=== PATIENT | female | born 1945 | race African-American/Black ===

== ENCOUNTER 2019-04-26 18:07 | Inpatient (IN) | payer MEDICARE ==
[2019-04-27 01:57] VITALS: BP 134/63
[2019-04-27] MEDS ORDERED: Magnesium Hydroxide (MOM) 30 mL UDC PO PRN (04:15)
[2019-04-27] MEDS: INSULIN LISPRO SLIDING SCALE 100 UNITS/ML UNIT SUBQ SCH ×4 (07:43→21:01)
[2019-04-27] MEDS: Multivitamin Tab PO SCH (09:43)
--- NOTE | 2019-04-27 17:51 | History and Physical ---
History of Present Illness - HPI Chief Complaint: Suicidal Ideation HPI: Patient has history of psychosis, that was send from hospital to continue treatment due to Suicidal ideas. 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 GI: Report: GERD Psych: Report: Anxiety, Depression, Psychosis Musculoskeletal: Report: Muscle Atrophy, Weakness Rheumatologic: Report: No pertinent Hx Infectious Disease: Report: No Pertinent Hx Renal/: Report: No Pertinent Hx Endocrine: Report: Diabetes Dermatology: Report: No Pertinent Hx - Past Surgical History Past Surgical History: No pertinent Hx Family Medical History - Family Member Mother History Unknown: Yes Father History Unknown: Yes Social History Smoke: No Alcohol: None Drugs: None Lives: Retirement Domestic Violence: Negative - Medications Home Medications: Home Medication Medication Instructions Recorded Type Acetaminophen [Acetaminophen ER] 650 mg PO Q6HR PRN 04/27/19 History Amlodipine Besylate 2.5 mg PO DAILY 04/27/19 History Atorvastatin Calcium [Lipitor] 40 mg PO HS 04/27/19 History Bisacodyl [Dulcolax 10 Mg Supp] 10 mg RC Q24HR PRN 04/27/19 History Cholecalciferol (Vit D3) [Vitamin 1,000 unit PO DAILY 04/27/19 History D3] Cyanocobalamin [Vitamin B12] 500 mcg PO DAILY 04/27/19 History Donepezil HCl [Aricept] 10 mg PO HS 04/27/19 History Fleet Enema 135 ml RC DAILY PRN 04/27/19 History Furosemide [Lasix] 20 mg PO DAILY 04/27/19 History Hydrocodone/APAP 5mg/325mg [Independence 1 tab PO Q6H PRN 04/27/19 History 5mg/325mg] Insulin Human Regular [humuLIN R] See Protocol SQ ACHS 04/27/19 History Lactulose 30 ml PO BID PRN 04/27/19 History Ondansetron HCl [Zofran*] 4 mg PO Q6H PRN 04/27/19 History Pantoprazole Sodium [Protonix] 40 mg PO DAILY 04/27/19 History Ranolazine [Ranolazine ER] 500 mg PO BID 04/27/19 History Rivaroxaban [Xarelto] 20 mg PO DAILY 04/27/19 History Sertraline [Zoloft] 25 mg PO DAILY 04/27/19 History Sucralfate [Carafate] 10 ml PO ACHS 04/27/19 History Trazodone HCl 150 mg PO HS 04/27/19 History clonazePAM [klonoPIN] 0.5 mg PO DAILY 04/27/19 History metFORMIN [Glucophage] 500 mg PO BID 04/27/19 History - Allergies Allergies/Adverse Reactions: Allergies Allergy/AdvReac Type Severity Reaction Status Date / Time ampicillin Allergy Verified 04/27/19 02:05 Penicillins Allergy Verified 04/27/19 02:05 procaine Allergy Verified 04/27/19 02:05 Review of Systems - Review of Systems Constitutional: Report: Other (confused, not oriented) Eyes: Report: No Significant ENT: Report: No Significant Respiratory: Report: No Significant Cardiovascular: Report: No Significant Genitourinary: Report: No Significant Musculoskeletal: Report: No Significant Skin: Report: No Significant Neurological: Report: Weakness Physical Exam - Physical Exam HEENT: Report: Ears Nose Throat within normal limits Neck: Report: Within normal limits Cardiovascular Systems: Report: Regular, Rate and Rhythm Respiratory: Report: Breath Sounds are within normal limits Abdomen: Report: Non-tender to palpation Back: Report: Inspection of back is within normal limits. Extremities: Report: Non-tender to palpation., Other (weakness of left side of body) Skin: Report: Color of skin is within normal limits Neuro/Psych: Report: Disoriented to name time or place, Facial droop noted - Assessment Assessment: Patient is awake, confused in no acute distress. Dx: Suicidal ideation, Psychosis, HTN, GERD, Urinary incontinency, S/P PE, S/P CVA, General weakness, Non ambulatory. - Plan Plan: Patient is follow by Psychiatry, Will continue with SNF meds. Will continue to monitor.
--- NOTE | 2019-04-28 03:01 | Psychiatric Evaluation ---
DATE OF SERVICE: 04/27/2019 IDENTIFYING DATA: The patient is a 74-year-old woman, [facility]. The patient is admitted here on a voluntary basis in view of her acute agitation and threats to hurt herself. CHIEF COMPLAINT: "I am upset, I'm feeling depressed for being in here." HISTORY OF PRESENT ILLNESS: This is the first psychiatric hospitalization to [facility] for this patient who is reported to multiple medical problems and is reported to have been getting easily agitated. As per the information obtained, the patient has been reported to have been getting depressed and has been threatening to hurt herself in the past, but at this time, the patient is denying any of that. The patient is also reported to have been getting easily agitated. The patient is stating that she has been able to fall asleep with the medications that she has been taking and the patient is still reporting that she does not understand why she needs to be in here. Sleep is noted to be poor. Appetite is noted to be fair. The patient has a difficult time to articulate; but however the patient is able to verbalize her concerns. PAST PSYCHIATRIC HISTORY: Details are not known. MEDICAL HISTORY AND PHYSICAL EXAMINATION: Requested by Dr. Fox. SUBSTANCE ABUSE HISTORY: None. PHYSICAL OR SEXUAL ABUSE HISTORY: None. LEGAL PROBLEMS: None at this time. STRENGTH AND ASSETS: The patient is motivated. MENTAL STATUS EXAMINATION: The patient is a 74-year-old woman looking her stated age, superficially cooperative. The patient has some articulation problems. The patient is isolative and withdrawn at this time. The patient has paranoia, but denies any command hallucinations. The patient is alert and awake, but the patient has short-term as well as long-term memory deficits. The patient is not able to care for herself. The patient is bedridden for most of the time. The patient feels very weak and reports that she is tired because she did not sleep well last night. DIAGNOSES: AXIS I: Major depressive disorder, recurrent and moderate. IB: Dementia and behavioral change, secondary trait. AXIS II: None. AXIS III: As per Dr. Fox. IMMEDIATE TREATMENT PLAN: The patient is going to be observed on inpatient unit, provided with supportive psychotherapy. The patient is going to be closely monitored. I encouraged to verbalize the concerns rather than to act out. The patient is currently on clonazepam that is going to be continued as 0.5 mg daily and the patient is also on sertraline that is going to be continued. The patient is complaining of insomnia and the patient is going to be continued with 50 mg of the trazodone and Ambien is going to be given on a p.r.n. basis. ESTIMATED LENGTH OF STAY: 5-7 days. DISCHARGE CRITERIA: When she no longer is a threat to self or others and be able to cope up with the stress. JOB# [id number]
[2019-04-28] MEDS: INSULIN LISPRO SLIDING SCALE 100 UNITS/ML UNIT SUBQ SCH ×4 (06:42→20:54)
[2019-04-28] MEDS: Multivitamin Tab PO SCH (09:21)
--- NOTE | 2019-04-29 01:38 | Progress Notes ---
DATE: 04/28/2019 PSYCHIATRIC PROGRESS NOTE SUBJECTIVE: Staff was spoken to. The patient is interviewed. The patient is getting easily frustrated. The patient has been having difficult time to articulate. The patient is lying down in the bed and needs some help to be getting out of the bed. The patient has no coping skills at this time. The patient is still insisting on ending her life because she is frustrated with her multiple medical problems. ASSESSMENT: The patient is still depressed. PLAN: To continue the patient with the supportive therapy and followup. JOB# [id number]
[2019-04-29] MEDS: INSULIN LISPRO SLIDING SCALE 100 UNITS/ML UNIT SUBQ SCH ×4 (06:39→20:48)
[2019-04-29] MEDS: Multivitamin Tab PO SCH (09:19)
--- NOTE | 2019-04-29 23:18 | Progress Notes ---
DATE: 04/29/2019 PSYCHIATRIC PROGRESS NOTE SUBJECTIVE: Staff was spoken to. The patient is interviewed. Mood is noted to be irritable. Affect is constricted. The patient is reported to have been requesting for more and more of the pain medication. The patient has no insight into her illness. Coping skills are noted to be extremely poor. The patient has been isolative and withdrawn. Speech has been impeded. The patient has been finding it difficult to open up and then express his concerns. The patient is lying down in the bed most of the time. ASSESSMENT: The patient is still depressed, and voicing suicidal ideation. PLAN: To continue the patient with the supportive therapy, encouraged the patient to verbalize the concerns rather than to act out. JOB# [id number]
[2019-04-30] MEDS: INSULIN LISPRO SLIDING SCALE 100 UNITS/ML UNIT SUBQ SCH ×4 (06:38→20:49)
[2019-04-30] MEDS: Multivitamin Tab PO SCH (09:07)
--- NOTE | 2019-04-30 09:16 | General Progress Note ---
Subjective - Review of Systems Service Date: 04/28/19 Subjective: Patient is awake, confused Objective - Results Recent Labs: Laboratory Last Values POC Glucose 98 MG/DL (70 - 105) 04/30/19 05:37 - Physical Exam Vitals and I&O: Vital Signs Temp 97.6 F 04/30/19 06:48 Pulse 62 04/30/19 06:48 Resp 18 04/30/19 07:31 BP 125/69 04/30/19 06:48 Pulse Ox 99 04/30/19 06:48 Intake & Output 04/29/19 04/30/19 04/30/19 18:59 06:59 18:59 Intake Total 1200 240 Balance 1200 240 Intake: Oral 1200 240 Other: # Voids 2 # Bowel Movements 1 0 Active Medications: Current Medications Acetaminophen (Tylenol) 650 mg PO Q6H PRN PRN Reason: Pain (Mild 1-3) Stop: 06/27/19 05:17 Last Admin: 04/29/19 17:50 Dose: 650 mg Acetaminophen (Tylenol) 650 mg PO Q6H PRN PRN Reason: Temperature above 101 Stop: 06/27/19 18:08 Clonazepam (Klonopin) 0.5 mg PO DAILY JIMI; Protocol Stop: 06/26/19 08:59 Last Admin: 04/30/19 09:07 Dose: 0.5 mg Insulin Human Lispro (Humalog Insulin Sliding Scale) 0 units SUBQ ACHS JIMI; Protocol Stop: 06/26/19 07:29 Last Admin: 04/30/19 06:38 Dose: Not Given Lorazepam (Ativan) 0.5 mg PO Q4HR PRN; Protocol PRN Reason: Anxiety/Agitation Stop: 05/27/19 04:14 Last Admin: 04/28/19 04:05 Dose: 0.5 mg Magnesium Hydroxide (Milk Of Magnesia) 30 ml PO HS PRN PRN Reason: Constipation Multivitamins/Vitamin C (Theragran) 1 tab PO DAILY JIMI Stop: 06/26/19 08:59 Last Admin: 04/30/19 09:07 Dose: 1 tab Sertraline HCl (Zoloft) 25 mg PO DAILY JIMI; Protocol Stop: 06/26/19 08:59 Last Admin: 04/30/19 09:07 Dose: 25 mg Trazodone HCl (Desyrel) 50 mg PO HS JIMI Stop: 06/26/19 20:59 Last Admin: 04/29/19 21:32 Dose: 50 mg Zolpidem Tartrate (Ambien) 5 mg PO HS PRN PRN Reason: Insomnia Stop: 06/26/19 04:14 General: Alert, Other (Confused) HEENT: Atraumatic Neck: Supple Cardiovascular: Regular rate Lungs: Clear to auscultation Abdomen: Bowel sounds, Soft Extremities: Other (No edema) Neurological: Other (Patient non ambulatory) Skin: Other (Warm and dry) Psych/Mental Status: Other (Patient is confused, calm) Assessment/Plan - Assessment Assessment: Patient is awake, confused in no acute distress. Dx: Suicidal ideation, Psychosis, HTN, GERD, Urinary incontinency, S/P PE, S/P CVA, General weakness, Non ambulatory. - Plan Plan: Patient is follow by Psychiatry, Will continue with SNF meds. Will continue to monitor.
--- NOTE | 2019-05-01 06:33 | Progress Notes ---
DATE: 04/30/2019 PSYCHIATRIC PROGRESS NOTE SUBJECTIVE: Staff was spoken to. The patient is interviewed. Mood is noted to be irritable. Affect is constricted. The patient's insight and judgment at this time are noted to be still impaired. Impulse control is noted to be limited. The patient has been screaming and yelling and wants more and more pain medications. The patient has no insight into her illness. ASSESSMENT: The patient is still impulsive and depressed. PLAN: To continue the patient with the supportive therapy. I encouraged the patient to verbalize the concerns rather than to act out. JOB# [id number]
[2019-05-01] MEDS: INSULIN LISPRO SLIDING SCALE 100 UNITS/ML UNIT SUBQ SCH ×4 (06:40→21:47)
[2019-05-01] MEDS: Multivitamin Tab PO SCH (08:38)
[2019-05-02] MEDS: INSULIN LISPRO SLIDING SCALE 100 UNITS/ML UNIT SUBQ SCH ×4 (06:41→21:13)
[2019-05-02] MEDS: Multivitamin Tab PO SCH (08:30)
[2019-05-03] MEDS: INSULIN LISPRO SLIDING SCALE 100 UNITS/ML UNIT SUBQ SCH ×4 (06:31→20:55)
--- NOTE | 2019-05-03 08:04 | Progress Notes ---
DATE: 05/02/2019 SUBJECTIVE: Staff was spoken to. The patient is interviewed. Mood is noted to be irritable. Affect is constricted. Insight and judgment at this time are noted to be still impaired. Impulse control is noted to be limited. Coping skills are noted to be limited. The patient is still depressed. The patient is voicing vague suicidal ideation. No clear plans are voiced. The patient is currently on low dose of Zoloft. Plan to increase the Zoloft to 50 mg and follow her up. ASSESSMENT: The patient is still depressed. PLAN: To continue the patient with the supportive therapy and followup. JOB# [id number]
--- NOTE | 2019-05-03 08:04 | Progress Notes ---
DATE: 05/01/2019 PSYCHIATRIC PROGRESS NOTE SUBJECTIVE: Staff was spoken to. The patient is interviewed. Mood is noted to be irritable. Affect is constricted. Coping skills are noted to be still poor. Insight and judgment are also noted to be limited. No side effects to the medications are noted. The patient is being depressed and has been still voicing suicidal ideation. No homicidal ideation is noted. The patient's coping skills at this time are noted to be extremely poor. The patient, however, has been asking for more and more of the pain medication. ASSESSMENT: The patient is still depressed. PLAN: To continue the patient with the supportive therapy. I encouraged the patient to verbalize the concerns rather than to act out. [facility]# [id number]
[2019-05-03] MEDS: Multivitamin Tab PO SCH (08:29)
--- NOTE | 2019-05-03 23:25 | Progress Notes ---
DATE: 05/03/2019 PSYCHIATRIC PROGRESS NOTE SUBJECTIVE: Staff was spoken to. The patient is interviewed. Mood is noted to be irritable. Affect is constricted. The patient is stating that she has been in here for too long and needs to go back to a placement. Coping skills at this time are noted to be still poor. The patient has been denying any suicidal ideation and impulsivity is a concern. No side effects to the medications are noted. Sleep is noted to be improving. Appetite is noted to be fair at this time. ASSESSMENT: The patient is still depressed. PLAN: To continue the patient with the current medications and followup. [facility]# [id number]
[2019-05-04] MEDS: INSULIN LISPRO SLIDING SCALE 100 UNITS/ML UNIT SUBQ SCH ×4 (06:36→20:36)
[2019-05-04] MEDS: Multivitamin Tab PO SCH (08:13)
--- NOTE | 2019-05-05 00:10 | Progress Notes ---
DATE: 05/04/2019 PSYCHIATRIC PROGRESS NOTE SUBJECTIVE: Staff was spoken to. The patient is interviewed. Mood is noted to be irritable. Affect is constricted. The patient is stating that she has been having difficult time to attend any groups and she cannot get out of the bed. The patient is able to articulate some of her concerns. The patient, however, has been getting easily frustrated. Family wants her to be placed in a different location and the account development manager has been trying to look for some place and so far nothing is available. ASSESSMENT: The patient is still depressed. PLAN: To continue the patient with the supportive therapy and followup. JOB# [id number]
[2019-05-05] MEDS: INSULIN LISPRO SLIDING SCALE 100 UNITS/ML UNIT SUBQ SCH ×4 (07:46→20:56)
[2019-05-05] MEDS: Multivitamin Tab PO SCH (08:45)
--- NOTE | 2019-05-06 01:53 | Progress Notes ---
DATE: 05/05/2019 PSYCHIATRIC PROGRESS NOTE SUBJECTIVE: Staff was spoken to. The patient is interviewed. Mood is noted to be irritable. Affect is constricted. The patient is stating that she wants to go back to [facility] and the patient's family wants her to be placed close to where they live, but the patient is stating that she is okay in going back. The patient's coping skills at this time are noted to be improving. No side effects to the medications are noted. The patient has been having difficult time to cope with the stress. The patient is stating that she is trying her best and the patient is going to be encouraged to verbalize the concerns rather than to act out. The patient is currently on Zoloft and we would like to continue the medication. The patient's family has been informed that the place where they are looking for does not want to take the patient because of the patient's exertion of the group home days and the patient is going to be possibly return back to [facility]. PLAN: To continue the patient with the supportive therapy and followup. JOB# [id number]
[2019-05-06] MEDS: INSULIN LISPRO SLIDING SCALE 100 UNITS/ML UNIT SUBQ SCH ×4 (06:34→21:08)
[2019-05-06] MEDS: Multivitamin Tab PO SCH (08:16)
--- NOTE | 2019-05-06 11:14 | Consultation ---
DATE OF CONSULTATION: 05/05/2019 REQUESTING PHYSICIAN: Nemesio El MD and Vee Harris MD TYPE OF CONSULTATION: Psychology. HISTORY OF PRESENT ILLNESS: The patient is a 74-year-old female. The patient is a resident of [facility]. The following is by review of the record and by the patient's self-report. The patient is being admitted due to acute agitation and threats to harm herself. Upon interview, the patient states that she has been upset with the staff at her facility and that she was not depressed; however, she is stating that she is depressed for being transferred here. The staff at the patient's facility reported that she had been getting easily agitated and that she was threatening to hurt herself and also in the past. The staff indicated that the patient is somewhat manipulative. The patient is stating that she does not understand why she needs to be hospitalized. She stated sleep is poor and appetite is fair. She is having difficulty verbalizing some of her words and is noticeably word searching; however, the patient is able to respond coherently and relevantly to the clinical questions. She denied any suicidal ideation, plan or means or intention at the time of this clinical interview. PAST MEDICAL HISTORY: Please see history and physical by Dr. Fox. PAST PSYCHIATRIC HISTORY: History is unknown. Records are unavailable. SUBSTANCE ABUSE HISTORY: The patient denies any history of alcohol, tobacco or illicit drug use. PSYCHOSOCIAL HISTORY: The patient did not answer the majority of the questions given. The patient states that she is and that her christian preference or affiliation is Nondenominational. She stated she has a daughter named Yumiko who is involved in her care. However, she was unable to state whether she has had any recent contact with her. The patient did not answer questions about educational or occupational history. The patient wishes to discharge home versus returning to the half-way facility. Case management as well as the attending psychiatrist will discuss discharge plans with the patient. MENTAL STATUS EXAMINATION: The patient appears to be her stated age. The patient's attitude is cooperative. Eye contact is fair. The patient's speech and articulation is compromised to a minor to medium degree. It is unknown if the patient has had a history of expressive aphasia. The patient stated that she is depressed about her living situation, but mostly frustrated with the staff there. The patient denied having any agitated responses or difficulty in her interactions with staff. Mood is depressed. Affect constricted. The patient denied any auditory or visual hallucinations; however, the patient seems to have a sense of suspiciousness, possibly rising to paranoia. This needs further evaluation. The patient denied any suicidal ideation, plan or intention. The patient's behavior has been isolative and withdrawn. Impulse control is limited. The patient is alert. Sensorium is alert, aware, responsive and oriented x 2. The patient was unable to repeat any of the items given to her after several minutes. Short term memory seems to be impaired. There seems to be possible long-term memory deficits as well. The patient is bedridden and unable to care for herself. The patient states that she feels fatigued. The patient did not participate in the interpretation of proverbs. Insight is poor. Judgment is compromised. DIAGNOSTIC IMPRESSION AXIS I: Major depressive disorder, recurrent, moderate. AXIS IB. Dementia with behavioral disturbance. AXIS II: Deferred. AXIS III: Per Dr. Fox. TREATMENT PLAN: The patient has been seen by Dr. Harris for psychiatric evaluation and for the management of the patient's psychotropic medications. We will provide supportive psychotherapy to include motivational enhancement for the patient to become compliant and stay compliant with all aspects of her care and treatment. We will provide cognitive behavioral therapy as well as coping strategies for phase of life issues and to reduce the patient's depression. We will encourage the patient to stay compliant with her medication. The patient is currently on clonazepam, which is being continued as well as sertraline, which is also being continued. The attending psychiatrist indicates trazodone and Ambien are to be given on a p.r.n. basis. We will continue to provide supportive psychotherapy and contact the patient's daughter with respect to the patient's discharge and return to her half-way facility placement. Thank you, Dr. Harris for this consult and the opportunity to participate with you in this patient's care. JOB# [id number] [facility]
--- NOTE | 2019-05-06 19:45 | Progress Notes ---
DATE: 05/06/2019 PSYCHIATRIC PROGRESS NOTE SUBJECTIVE: Staff was spoken to. The patient is interviewed. Mood is noted to be anxious. Affect is appropriate. The patient is not suicidal or homicidal. Insight and judgment are noted to be improving. Impulse control seems to be fair. No side effects to the medications are noted. The patient has been able to verbalize the concerns rather than to act out at this time. The patient is not presenting with any threats to harm self or others. ASSESSMENT: The patient is stabilizing. PLAN: To closely monitor the patient and look for discharge for the patient, whenever the placement is available. JOB# [id number]
[2019-05-07] MEDS: INSULIN LISPRO SLIDING SCALE 100 UNITS/ML UNIT SUBQ SCH ×4 (06:33→20:36)
[2019-05-07] MEDS: Multivitamin Tab PO SCH (08:34)
[2019-05-08] MEDS: INSULIN LISPRO SLIDING SCALE 100 UNITS/ML UNIT SUBQ SCH ×4 (06:39→20:58)
[2019-05-08] MEDS: Multivitamin Tab PO SCH (08:19)
--- NOTE | 2019-05-08 10:53 | Progress Notes ---
DATE: 05/07/2019 PSYCHOLOGY PROGRESS NOTE SUBJECTIVE: The patient is seen and spoken with. The patient seems to be anxious. The patient denied any self-harm thoughts. Staff reports the patient has been compliant with her medications and is able to verbalize her concerns versus acting out. The patient is asking about discharge. This is deferred to the attending psychiatrist. ASSESSMENT: The patient seems to be stabilizing. The patient is less agitated. She was able to respond to some of the coping strategies being offered. PLAN: We will continue to provide monitoring. We will provide coping strategies for phase of life issues. We will continue to provide suicide prevention interventions and encourage the patient to verbalize her concerns versus acting out. We will continue to provide and encourage the patient to verbally contract for safety for no self-harm or harm to others. We will provide supportive therapy as well. We will follow up in 2-3 days if the patient remains admitted on the unit. [facility]# [id number] [facility]
--- NOTE | 2019-05-08 14:03 | Progress Notes ---
DATE: 05/08/2019 SUBJECTIVE: Staff was spoken to. The patient is interviewed. Mood is noted to be irritable. Affect is constricted. The patient was supposed to be discharged as of yesterday, but [facility] has mentioned that they have no bed available until Friday and the patient is getting easily frustrated. The patient has no insight into her illness. Coping skills are noted to be improving. The patient, however, has been getting frustrated. Sleep and appetite are noted to be fair. ASSESSMENT: The patient is stabilizing. PLAN: To discharge the patient when placement is available. JOB# [id number]
[2019-05-09] MEDS: INSULIN LISPRO SLIDING SCALE 100 UNITS/ML UNIT SUBQ SCH ×4 (07:06→20:24)
[2019-05-09] MEDS: Multivitamin Tab PO SCH (08:17)
[2019-05-10] MEDS: INSULIN LISPRO SLIDING SCALE 100 UNITS/ML UNIT SUBQ SCH ×2 (06:45→11:39)
[2019-05-10] MEDS: Multivitamin Tab PO SCH (09:06)
== END 2019-05-10 16:55 | DRG 885 ==
LOC: GERO 04-27 00:55
PROVIDERS: ADMIT Psychiatry & Neurology Psychiatry; ATTEND Psychiatry & Neurology Psychiatry
DX: F33.1 Major depressive disorder, recurrent, moderate (principal); I11.0 Hypertensive heart disease with heart failure; R45.851 Suicidal ideations; F03.91 Unspecified dementia, unspecified severity, with behavioral disturbance; F29 Unspecified psychosis not due to a substance or known physiological condition; K21.9 Gastro-esophageal reflux disease without esophagitis; R32 Unspecified urinary incontinence; I50.9 Heart failure, unspecified; I25.10 Atherosclerotic heart disease of native coronary artery without angina pectoris; E11.9 Type 2 diabetes mellitus without complications; J44.9 Chronic obstructive pulmonary disease, unspecified; G47.00 Insomnia, unspecified; Z86.711 Personal history of pulmonary embolism; Z86.73 Personal history of transient ischemic attack (TIA), and cerebral infarction without residual deficits; Z79.84 Long term (current) use of oral hypoglycemic drugs
CPT/HCPCS: 82948-90; 83036-90; Z7610